=== PATIENT | female | born 1960 | race Caucasian/White ===

== ENCOUNTER 2020-12-21 15:57 | Emergency (ER) | payer OTHER | END 2020-12-21 17:46 | disposition home or self-care (01) | LOC: FER 15:57 | DX: S63.502A Unspecified sprain of left wrist, initial encounter (principal); V18.2XXA Unspecified pedal cyclist injured in noncollision transport accident in nontraffic accident, initial encounter; Y92.009 Unspecified place in unspecified non-institutional (private) residence as the place of occurrence of the external cause | CPT/HCPCS: 73090; 73110; 73130 ==